=== PATIENT | male | born 1935 | race Caucasian/White ===

== ENCOUNTER 2019-01-02 07:27 | Inpatient (IN) | payer MEDICARE, SELFPAY ==
[2019-01-02] VITALS (15 sets, daily range): BP systolic 132–161; BP diastolic 54–84; PULSE 48–62; RESP 16–20; TEMP 36.3–36.8; O2SAT 93–97; BMI 26.5; BMI 26.6; BMI 27.1
--- NOTE | 2019-01-02 07:32 | RAD_ITS ---
STUDY: X-RAY CHEST REASON FOR EXAM: Male, 83 years old. Intermittent chest pain. Lightheadedness. TECHNIQUE: AP and lateral views of the chest. COMPARISON: None. FINDINGS: EKG electrodes are seen. Right upper lobe consolidation. There is no demonstrated pleural abnormality. Sternal cerclage wires and vascular clips are present from a prior sternotomy and coronary artery bypass graft procedure (CABG). Mild cardiomegaly. Normal mediastinum and terry. Normal visualized pulmonary arteries. There is atherosclerotic calcification of the aortic arch with tortuosity. There are diffuse degenerative changes of the visualized thoracic spine. Normal visualized ribs, clavicles, and shoulders. There is no demonstrated abnormality of the visualized soft tissue structures of the upper abdomen. RAD/Chest PA and Lateral IMPRESSION: Right upper lobe consolidation. Electronically Signed: Tyrel Johnson, at 9:11 EDT , Service support ,
--- NOTE | 2019-01-02 07:32 | EKG12_ITS ---
Test Reason : CP Blood Pressure : / mmHG Vent. Rate : 060 BPM Atrial Rate : 060 BPM P-R Int : 166 ms QRS Dur : 080 ms QT Int : 456 ms P-R-T Axes : 000 014 046 degrees QTc Int : 456 ms Normal sinus rhythm Nonspecific ST and T wave abnormality Abnormal ECG Confirmed by YUDELKA LOBO ([id number]), sound editor JAMES SMALLS ([id number]) on 01/05/2019 4:45:53 PM Referred By: HENRIETTA Confirmed By:YUDELKA LOBO
--- NOTE | 2019-01-02 08:02 | ED.DCSUM_ITS ---
History of Present Illness Chief Complaint: Shortness of Breath Informant: Family Onset: Days Context: Gradual Onset Timing: Intermittent Current Severity: Mild Maximum Severity: Mild Narrative: 83-year-old male presents from home where he lives with his at a catered living center. He was just hospitalized in [place] for pneumonia and discharged back to home 3 days ago. He required oxygen in the hospital but not upon discharge. His has been checking his oxygen saturation with a portable meter and it has varied from 85-95. He has been complaining of shortness of breath occasional lightheadedness. He was discharged home on Levaquin. He has a history of Parkinson's dementia and at baseline is fairly confused and hallucinates but he has been hallucinating somewhat more since he was diagnosed with pneumonia. Past Medical History - Allergies and Home Meds Allergies/Adverse Reactions: Allergies escitalopram [From Lexapro] Allergy (Verified 01/02/19 07:58) Unknown gabapentin Allergy (Verified 01/02/19 07:58) Unknown lorazepam [From Ativan] Allergy (Verified 01/02/19 07:58) Unknown Past Medical History: - - Parkinson's dementia, no history of COPD, never on home oxygen Lives: Spouse/ Significant Other Smoking Status: Never smoker Review of Systems All systems negative except as indicated General: Denies: Fever Cardiovascular: Denies: Chest pain Respiratory: Reports: Dyspnea, Cough, Sputum, Dyspnea on exertion Gastrointestinal: Denies: Vomiting Genitourinary: Denies: Dysuria Musculoskeletal: Denies: Back pain, Extremity Pain Skin: Denies: Rash Neurological: Denies: Weakness Psych: Denies: Depression, Anxiety Endocrine: Denies: Polyuria Hematologic: Denies: Easy bruising Allergy: Denies: Uticaria, Swelling of the mouth Physical Exam Vital Signs/Narrative: Vital Signs Temp Pulse Resp BP Pulse Ox 01/02/19 07:52 53 L 19 H 161/72 H 96 01/02/19 07:27 97.5 F L 60 18 132/65 H 96 Inital Vital Signs reviewed: Yes General: Well nourished, Well developed, No Acute Distress Head: Normocephalic, Atraumatic Eyes: Perrl, EOMI ENT: Moist mucous membranes Neck: Supple, Nontender Cardiovascular: Regular rate, Regular rhythm, No murmurs, Normal S1, Normal S2 Respiratory: No distress, CTA bilaterally Abdomen: Soft, Nontender, Nondistended Back: Normal Inspection Extremities: Nontender, No edema Skin: Normal color, No rash Neurological: Alert, - - no focal or lateralizing findings, answering questions appropriately Psychological: Normal affect, - - baseline per family Diagnostic/Tx/Re-eval - Rhythm Strip Rhythm Strip: Sinus Rhythm Ectopy: None - EKG sinus, 60, no acute ischemic changes Interpretation: Sinus Rhythm Prior: No Prior - Medical Decision Making Chest x-ray revealed a fairly sizable right middle/upper lobe pneumonia. White blood cell count was nearly 27,000 the lactic acid is normal. Vital signs are all fairly unremarkable except he is requiring 2 L of oxygen. He is not in acute distress. Urinalysis unremarkable. Given his oxygen requirement, pneumonia, leukocytosis, and recent hospitalization, I do feel he meets criteria for full admission. He just took his dose of Levaquin just prior to arrival so I did not administer antibiotics in the emergency department I discussed the case with the hospitalist at the bedside who has ordered antibiotics, intravenous Zosyn, which will be administered as soon as cleared from pharmacy. ED Disposition - Plan for ED Patient: Disposition: Acute Care [facility] Diagnosis: Healthcare-associated pneumonia
[2019-01-02 08:16] LABS: Absolute Lymphocyte Count 20.42 X10^3/ul (0.83-4.51); Absolute Neutrophil Count 4.5 X10^3/uL (2.0-7.7); Basophil# 0.05 X10^3/uL; Basophil% 0.2 % (0-1); Eosinophil# 0.29 X10^3/uL; Eosinophils% 1.1 % (0-5); Hematocrit 31.4 % (40-54); Lymphocyte # 20.42 X10^3/ul (4.0); Lymphocyte % 78.4 % (19-41); Mean Corp Hgb Conc 31.8 g/gl (32-36); Mean Corpuscular Hgb 27.9 pg (27.0-32.0); Mean Corpuscular Volume 87.7 fL (80-94); Mean Platelet Vol. 9.6 fl (6.2-12.0); Monocyte# 0.69 X10^3/uL; Monocyte% 2.6 % (0-10); Neutrophil % 17.3 % (47-70); Platelet Count 275 K/mm3 (150-450); RBC Distribution Width CV 16.3 % (11.6-14.6); RBC Distribution Width SD 50.5 fl (35.1-43.9); Red Blood Count 3.58 M/mm3 (4.6-6.2); White Blood Count 26.1 K/mm3 (4.4-11.0)
[2019-01-02 08:18] LABS: Differential Indicated SCAN CRITERIA MET; POSITIVE COUNT NO; POSITIVE DIFFERENTIAL YES; POSITIVE MORPHOLOGY YES
[2019-01-02 08:23] LABS: Bacteria 0 SEEN /hpf (None Seen); Mucous, Urine 0 SEEN /hpf (<or=2+); White Blood Cells 0 SEEN /hpf (0-5)
[2019-01-02 08:24] LABS: Anion Gap 6 (5-15); BUN 28 mg/dL (7-18); BUN/Creat Ratio 15.7 RATIO (10-20); Calcium,Total 8.3 mg/dL (8.5-10.1); Chloride 109 mmol/L (98-107); Creatinine, Serum 1.78 mg/dL (0.70-1.30); EST Glomerular Filtration Rate 39 mL/min (>60); Est Glom Filt Rate - Afr Amer 47 mL/min (>60); Estimated Creatinine Clearance 32.55 ml/min; Glucose 83 mg/dL (74-106); Potassium 4.6 mmol/L (3.5-5.1); Sodium Level 143 mmol/L (136-145)
[2019-01-02 08:24] LABS: Color, Urine Yellow (Yellow); Glucose, Dipstick Normal (Normal); Ketone-Dipstick Negative (Negative); Leukocyte Esterase-Dipstick Negative /ul (Negative); Nitrite-Dipstick Negative (Negative); Occult Blood-Urine 25 /ul (Negative); Protein-Dipstick 30 mg/dl (Negative); Urine Bilirubin Dipstick Negative (Negative); Urine Clarity Sl. Cloudy (Clear); Urine Urobilinogen Normal (Normal)
[2019-01-02 08:30] LABS: Red Blood Cells-Urine 0-5 SEEN /hpf (0-5); Squamous Epithelial Cells - UA 0-5 SEEN /hpf (0-5)
[2019-01-02 10:56] LABS: Lactic Acid 0.9 mmol/L (0.4-2.0)
[2019-01-02 11:58] LABS: Pathologist Review Reviewed
[2019-01-02] MEDS: Albuterol 2.5 MG/3 ML VIAL.NEB. INHALATION ×2 (13:07→18:36)
[2019-01-02] MEDS: Carbidopa/Levodopa 25/100 Tablet PO ×2 (14:17→22:57)
--- NOTE | 2019-01-02 17:39 | PCM.HP.STD ---
Problem List (1) Shortness of breath Status: Acute (2) Low pulse ox Status: Acute History of Present Illness Date of Admission: 01/02/19 Chief Complaint: Low pulse ox at home, shortness of breath The patient is a 83 year old M was seen in the emergency room at [facility] after being brought in by his due to a low pulse oximetry reading at home and complaints of intermittent shortness of breath. Patient had just been released from a community hospital after being treated for community-acquired pneumonia. Patient was in the hospital from 12/28/2018 through 12/30/2018. Patient's stated that he was on oxygen during his hospitalization but did not go home on oxygen. Patient has confusion due to Parkinson's dementia, states that he has been more confused than usual over the past couple of days. Review of systems was unobtainable from the patient, patient did answer simple questions appropriately however. Work-up in the emergency room showed an elevated white blood cell count, patient's chest x-ray showed a right upper lobe infiltrate, patient's creatinine was elevated at 1.78, BUN was 28, and lactic acid was unremarkable. Patient was afebrile. Patient's pulse ox on 2 L was 96%. Patient will be admitted for healthcare acquired pneumonia, he will be treated with IV Zosyn and receive aerosol treatments. Chest x-ray will be repeated tomorrow, labs will be monitored. Past Medical History Allergies escitalopram [From Lexapro] Allergy (Verified 01/02/19 07:58) Unknown gabapentin Allergy (Verified 01/02/19 07:58) Unknown lorazepam [From Ativan] Allergy (Verified 01/02/19 07:58) Unknown Home Medications: Ambulatory Orders Medication Instructions Recorded Aspirin E.C. [Ecotrin] 81 mg PO DAILY@0800 01/02/19 Carbidopa/Levodopa [Carbidopa-Levo 1 each PO TID 01/02/19 25-100 mg Odt] Cefdinir 300 mg PO BID 01/02/19 CycloSPORINE Ophthalmic [Restasis 1 drop OPHTHALMIC DAILY 01/02/19 Ophthalmic] Erythromycin Base [Erythromycin] 1 gm TOPICAL DAILY 01/02/19 L.acidoph,Paracasei, B.lactis 1 each PO DAILY 01/02/19 [Probiotic] Levofloxacin 500 mg PO DAILY 01/02/19 Levothyroxine [Synthroid] 112 mcg PO DAILY 01/02/19 Sertraline HCl 100 mg PO DAILY 01/02/19 Simvastatin 20 mg PO DAILY 01/02/19 Surgical History: appendectomy, cataract, cholecystectomy, tonsillectomy Psychiatric History: - - 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 Lives: Spouse/ Significant Other Smoking Status: Never smoker Tobacco Use: Non-smoker Alcohol: None Drugs: None - *Family History Maternal History Items: No pertinent history Paternal History Items: No pertinent history Review of Systems Comment: Review of systems was unobtainable from the patient due to confusion, patient answers some questions appropriately however, medical information was obtained from the patient's VTE Information - Inpt Only VTE Present on Admission: No VTE Mechan Device Prophylaxis: None VTE Pharm Prophylaxis ordered?: Yes Patient Problems: Active and Suspected Problems Healthcare-associated pneumonia (Acute) Shortness of breath (Acute) Low pulse ox (Acute) - Physical Exam General: Alert, Cooperative, Well developed, Confused - Patient has mild confusion, he answers some questions appropriately HEENT: Atraumatic, PERRLA, EOMI, Normocephalic Oral: Moist Mucosa Neck: Supple, No JVD, Negative Carotid Bruits, No Nuchal Rigidity, Trachea Midline, Thyroid Normal Size and Texture Lungs: Clear to auscultation, Normal air movement, No rhonchi, No wheeze, No rales Cardiovascular: Regular rate, Regular Rhythm, Normal S1, Normal S2, No murmurs, No Ectopic Activity, PMI Normal, No rub noted, No Gallop Abdomen: Bowel Sounds Present, Soft, Non Tender, Non-Distended, No hernias noted Extremities: No clubbing, No cyanosis, No edema, Capillary Refill Less than 3 Seconds Skin: No rashes, No breakdown Musculoskeletal: No Tenderness to Palpation of Joints or Extremities Neurological: Cranial nerves II-XII grossly intact, Neuro grossly intact, Sensory exam intact to light touch and pain, Coordination normal Psych/Mental Status: Normal Affect, Appropriate, Alert and oriented to time, place, person, mood and affect Vital Signs Temp Pulse Resp BP Pulse Ox 98.3 F 56 L 17 137/81 H 96 01/02/19 15:26 01/02/19 15:26 01/02/19 15:26 01/02/19 15:26 01/02/19 15:26 Oxygen Flow Rate (L/min) 2 Oxygen Delivery Method Nasal Cannula Weight: 78.744 kg Body Mass Index (BMI) 27.1 Intake and Output for Last 24 Hours 12/31/18 01/01/19 01/02/19 23:59 23:59 23:59 Intake Total 0 / 0 Output Total 0 / 0 Balance 0 / 0 Microbiology Past 72 Hours 01/02/19 07:55 Influenza Types A,B Direct FA (ANGELITA) - Final Mucosa - Nasopharyngeal Laboratory Tests Past 24 Hrs 01/02/19 01/02/19 01/02/19 07:45 07:45 08:10 WBC 26.1 H RBC 3.58 L Hgb 10.0 L Hct 31.4 L MCV 87.7 MCH 27.9 MCHC 31.8 L RDW 16.3 H RDW Differential 50.5 H Plt Count 275 MPV 9.6 Immature Gran % (Auto) 0.400 Neut % (Auto) 17.3 L Lymph % (Auto) 78.4 H Dade % (Auto) 2.6 Eos % (Auto) 1.1 Baso % (Auto) 0.2 Absolute Neuts (auto) 4.5 Absolute Lymphs (auto) 20.42 H Total Counted Not Reportable Diff Path Review Reviewed Sodium 143 Potassium 4.6 Chloride 109 H Carbon Dioxide 28.0 Anion Gap 6 BUN 28 H Creatinine 1.78 H Estim Creat Clear Calc 32.55 Est GFR (MDRD) Af Amer 47 L Est GFR (MDRD) Non-Af 39 L BUN/Creatinine Ratio 15.7 Glucose 83 Lactic Acid Calcium 8.3 L Troponin I 0.020 Urine Color Yellow Urine Clarity Sl. Cloudy Urine pH 5.0 Ur Specific [place] 1.020 Urine Protein 30 H Urine Glucose (UA) Normal Urine Ketones Negative Urine Occult Blood 25 H Urine Nitrite Negative Urine Bilirubin Negative Urine Urobilinogen Normal Ur Leukocyte Esterase Negative Urine RBC 0-5 SEEN Urine WBC 0 SEEN Ur Squamous Epith Cells 0-5 SEEN Urine Bacteria 0 SEEN Urine Mucus 0 SEEN 01/02/19 10:15 WBC RBC Hgb Hct MCV MCH MCHC RDW RDW Differential Plt Count MPV Immature Gran % (Auto) Neut % (Auto) Lymph % (Auto) Dade % (Auto) Eos % (Auto) Baso % (Auto) Absolute Neuts (auto) Absolute Lymphs (auto) Total Counted Diff Path Review Sodium Potassium Chloride Carbon Dioxide Anion Gap BUN Creatinine Estim Creat Clear Calc Est GFR (MDRD) Af Amer Est GFR (MDRD) Non-Af BUN/Creatinine Ratio Glucose Lactic Acid 0.9 Calcium Troponin I Urine Color Urine Clarity Urine pH Ur Specific [place] Urine Protein Urine Glucose (UA) Urine Ketones Urine Occult Blood Urine Nitrite Urine Bilirubin Urine Urobilinogen Ur Leukocyte Esterase Urine RBC Urine WBC Ur Squamous Epith Cells Urine Bacteria Urine Mucus Assessment/Plan All Active Problems Healthcare-associated pneumonia (Acute) Shortness of breath (Acute) Low pulse ox (Acute) #1 community-acquired pneumonia with failed outpatient treatment versus healthcare acquired pneumonia-patient will be admitted, he will be treated with IV Zosyn, he will receive aerosol treatments, repeat labs and chest x-ray will be obtained. 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 Patient appears to have chronic kidney disease. BMP will be repeated tomorrow #6 hyperlipidemia #7 hypothyroidism Code Visit Inpatient E&M: 29099 Init Hosp L3
[2019-01-02] MEDS: Atorvastatin Calcium 10 MG Tablet PO (22:57)
[2019-01-03] VITALS (7 sets, daily range): BP systolic 119–167; BP diastolic 48–65; PULSE 48–70; RESP 16–19; TEMP 36.6–36.8; O2SAT 93–96
--- NOTE | 2019-01-03 05:55 | RAD_ITS ---
STUDY: X-RAY CHEST REASON FOR EXAM: Male, 83 years old. Shortness of breath TECHNIQUE: PA and lateral views of the chest. COMPARISON: January 02, 2019 chest x-ray FINDINGS: There is a persistent focal patchy infiltrate in the right upper lobe. There is no demonstrated pleural abnormality. Sternal cerclage wires are present from a prior sternotomy. Normal mediastinum and terry. Normal visualized pulmonary arteries. Normal visualized aortic arch and descending thoracic aorta. There are diffuse degenerative changes of the visualized thoracic spine. Normal visualized ribs, clavicles, and shoulders. There is no demonstrated abnormality of the visualized soft tissue structures of the upper abdomen. RAD/Chest PA and Lateral IMPRESSION: Persistent right upper lobe pneumonia. Status post sternotomy. Electronically Signed: Cheryl Hwang MD at 15:05 EDT Tel , Service support ,
[2019-01-03] MEDS: Levothyroxine 112 MCG Tablet PO (05:56)
[2019-01-03] MEDS: Carbidopa/Levodopa 25/100 Tablet PO (05:57)
[2019-01-03 06:27] LABS: Absolute Lymphocyte Count 18.18 X10^3/ul (0.83-4.51); Absolute Neutrophil Count 5.2 X10^3/uL (2.0-7.7); Basophil# 0.06 X10^3/uL; Basophil% 0.3 % (0-1); Eosinophil# 0.18 X10^3/uL; Eosinophils% 0.8 % (0-5); Hematocrit 30.8 % (40-54); Hemoglobin 10.1 g/dl (13.0-16.5); Lymphocyte # 18.18 X10^3/ul (4.0); Lymphocyte % 75.9 % (19-41); Mean Corp Hgb Conc 32.8 g/gl (32-36); Mean Corpuscular Hgb 28.4 pg (27.0-32.0); Mean Corpuscular Volume 86.5 fL (80-94); Mean Platelet Vol. 8.6 fl (6.2-12.0); Monocyte# 0.24 X10^3/uL; Neutrophil # 5.22 X10^3/uL (2.7-7.7); Neutrophil % 21.7 % (47-70); Platelet Count 261 K/mm3 (150-450); RBC Distribution Width CV 15.8 % (11.6-14.6); RBC Distribution Width SD 50.2 fl (35.1-43.9); Red Blood Count 3.56 M/mm3 (4.6-6.2)
[2019-01-03 06:28] LABS: POSITIVE COUNT NO; POSITIVE DIFFERENTIAL YES
[2019-01-03 06:29] LABS: Differential Indicated SCAN CRITERIA MET; POSITIVE MORPHOLOGY YES
[2019-01-03] MEDS: Albuterol 2.5 MG/3 ML VIAL.NEB. INHALATION (06:35)
[2019-01-03 06:40] LABS: Anion Gap 7 (5-15); BUN 19 mg/dL (7-18); BUN/Creat Ratio 11.8 RATIO (10-20); Calcium,Total 8.4 mg/dL (8.5-10.1); Chloride 109 mmol/L (98-107); Creatinine, Serum 1.61 mg/dL (0.70-1.30); EST Glomerular Filtration Rate 44 mL/min (>60); Est Glom Filt Rate - Afr Amer 53 mL/min (>60); Estimated Creatinine Clearance 33.64 ml/min; Glucose 89 mg/dL (74-106); Potassium 3.7 mmol/L (3.5-5.1); Sodium Level 143 mmol/L (136-145)
[2019-01-03] MEDS: Enoxaparin 40 MG/0.4 ML Syringe SC (08:56)
--- NOTE | 2019-01-03 09:15 | NURSING ---
pt is irritable at this time. Confused on time of day. Insisting that no one has been in the room and he hasn't been fed. breakfast in room but pt refused to eat. Asked patient if he would like something else for breakfast but refused. Asked him if he wanted a family member called to visit, but he said no.
--- NOTE | 2019-01-03 11:05 | NURSING ---
Student nurse charting reviewed.
--- NOTE | 2019-01-03 11:25 | DCINST_ITS ---
- Discharge Diagnoses Current Active Problems: Current Active and Chronic Problems Healthcare-associated pneumonia (Acute) Shortness of breath (Acute) Low pulse ox (Acute) You will use the following diet at home:: No restrictions Your food should be the consistency of: Regular Your liquids should be the consistency of: Regular/Thin Discharge Activity: Return to Normal Activity Weight Bearing Status: Full weight bearing Allergies/Adverse Reactions: Allergies escitalopram [From Lexapro] Allergy (Verified 01/02/19 07:58) Unknown gabapentin Allergy (Verified 01/02/19 07:58) Unknown lorazepam [From Ativan] Allergy (Verified 01/02/19 07:58) Unknown Medications to take at Discharge Aspirin E.C. [Ecotrin] 81 mg PO DAILY@0800 01/02/19 Carbidopa/Levodopa [Carbidopa-Levo 25-100 mg Odt] 1 each PO TID 01/02/19 CycloSPORINE Ophthalmic [Restasis Ophthalmic] 1 drop OPHTHALMIC DAILY 01/02/19 Erythromycin Base [Erythromycin] 1 gm TOPICAL DAILY 01/02/19 L.acidoph,Paracasei, B.lactis [Probiotic] 1 each PO DAILY 01/02/19 Levothyroxine [Synthroid] 112 mcg PO DAILY 01/02/19 Sertraline HCl 100 mg PO DAILY 01/02/19 Simvastatin 20 mg PO DAILY 01/02/19 Levofloxacin 500 mg PO DAILY #0 01/03/19 Primary Care Physician: Kaci Ramirez DO [STAFF PHYSICIAN] - Please follow up with your Primary Care Physician in: in 7 days Test Results: Test results from this visit will be discussed in further detail at your follow- up appointment, if applicable.
--- NOTE | 2019-01-03 12:00 | CASEMGMT ---
Social Work Assessment Referral Date: 01/03/19 Date of Assessment: 01/03/19 Informant: NURSING Reason for Consult: D/C PLANNING Information obtained from: PATIENT AND PATIENT'S . Living Arrangements: PATIENT AND LIVE IN [place] IN AN INDEPENDENT LIVING APARTMENT. DME: WALKER Employment/Financial: RETIRED. PATIENT AND VOICE NO FINANCIAL CONCERNS. Supports: PATIENT HAS GOOD SUPPORT FROM . STATES PATIENT WILL BE GETTING OUTPATIENT THERAPY FROM [facility]. Interventions: SOCIAL SERVICE ASSESSMENT Assessment: PATIENT IS AN 83 Y/O MALE WHO RESIDES HOME WITH IN AN INDEPENDENT LIVING APARTMENT. PATIENT USES A WALKER FOR ASSISTANCE WITH AMBULATION NEEDED. REPORTS PLAN IS FOR HOME BEFORE AND DENIES ANY NEEDS AT THIS TIME. PLAN: HOME
[2019-01-03] MEDS: levoFLOXacin 500 MG Tablet PO (12:41)
--- NOTE | 2019-01-03 13:30 | CASEMGMT ---
Social Work Assessment Referral Date: Date of Assessment: Informant: Reason for Consult: Information obtained from: Living Arrangements: DME: Education: Employment/Financial: Supports: Social/Family Stressors: Mental Health History: Diagnoses: Medications: Physicians/Practitioners: Last Appointment (if applicable): Substance Abuse History: Substance(s) of choice: Last use: Hx of treatment: Where? When? Interventions: Assessment: PLAN:
--- NOTE | 2019-01-04 08:34 | DS.PCM_ITS ---
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 Patient had been hospitalized recently at [facility] for right upper lobe pneumonia and had been discharged 48 hours prior. Workup in the emergency room included labs which showed an elevated white blood cell count, patient's chest x-ray showed a right upper lobe infiltrate, patient's creatinine was elevated. Patient's pulse ox on 2 L was 96%, pulse ox subsequently on room air was 94%. Patient was admitted to PCU for community-acquired pneumonia with outpatient failure, he was placed on Zosyn, and he was given aerosol treatments. Chest x-ray was repeated the following day and it showed improvement in the infiltrate, patient's white blood cell count declined slightly. Patient was not felt to be septic. On 01/03/19, patient was seen and examined: On examination he appeared in good health and spirits. Vital signs as documented. Skin warm and dry and without overt rashes. Neck without JVD. Lungs clear. Heart exam notable for regular rhythm, normal sounds and absence of murmurs, rubs or gallops. Abdomen unremarkable and without evidence of organomegaly, masses, or abdominal aortic enlargement. Extremities nonedematous. Neuro: Cranial nerves II through XII are grossly intact, no focal motor deficits were noted, sensation to light touch and pinprick intact. Psych: Patient is alert , he does not appear anxious or depressed On 01/03/19, patient was seen and examined and felt to be in stable condition for discharge home - Physical Exam Vital Signs Temp Pulse Resp BP Pulse Ox 98.3 F 70 18 119/48 L 96 01/03/19 12:51 01/03/19 12:51 01/03/19 12:51 01/03/19 12:51 01/03/19 12:51 Oxygen Flow Rate (L/min) 94 Oxygen Delivery Method Room Air Weight: 78.744 kg Body Mass Index (BMI) 27.1 Intake and Output for Last 24 Hours 01/02/19 01/03/19 01/04/19 23:59 23:59 23:59 Intake Total 637 / 637 245 / 245 Output Total 750 / 750 750 / 750 Balance -113 / -113 -505 / -505 Microbiology Past 72 Hours 01/02/19 09:15 Blood Culture - Preliminary Blood Culture (Wb) #2 - Left Wrist No growth in 48 hours. 01/02/19 07:50 Blood Culture - Preliminary Blood Culture (Wb) #2 - Anticubital Right No growth in 48 hours. 01/02/19 07:55 Influenza Types A,B Direct FA (ANGELITA) - Final Mucosa - Nasopharyngeal Discharge Activity: Return to Normal Activity Weight Bearing Status: Full weight bearing Home Medications: Medications to take at Discharge Aspirin E.C. [Ecotrin] 81 mg PO DAILY@0800 01/02/19 Carbidopa/Levodopa [Carbidopa-Levo 25-100 mg Odt] 1 each PO TID 01/02/19 CycloSPORINE Ophthalmic [Restasis Ophthalmic] 1 drop OPHTHALMIC DAILY 01/02/19 Erythromycin Base [Erythromycin] 1 gm TOPICAL DAILY 01/02/19 L.acidoph,Paracasei, B.lactis [Probiotic] 1 each PO DAILY 01/02/19 Levothyroxine [Synthroid] 112 mcg PO DAILY 01/02/19 Sertraline HCl 100 mg PO DAILY 01/02/19 Simvastatin 20 mg PO DAILY 01/02/19 Levofloxacin 500 mg PO DAILY #0 01/03/19 Primary Care Physician: Kaci Ramirez DO [STAFF PHYSICIAN] - Please follow up with your Primary Care Physician in: in 7 days Please Follow Up With: Kaci Ramirez DO Disposition: Home Minutes spent on discharge:: 31 Patient Condition:: Stable Medical Necessity - Tobacco Use Smoking Status: Never smoker Tobacco Use: Non-smoker Meaningful Use Info Meaningful Use Diagnoses (Choose all that apply): None applicable Code Visit Inpatient E&M: 17825 Disch Hosp
== END 2019-01-03 13:10 | disposition home or self-care (01) | DRG 195 ==
LOC: ED 10:35 → PCU 11:11
PROVIDERS: Admitting Provider Internal Medicine; Emergency Provider Emergency Medicine; Family Provider Family Medicine; PCP Family Medicine; Visit Provider Internal Medicine
DX: J15.9 Unspecified bacterial pneumonia (principal); G20 Parkinson's disease; F02.80 Dementia in other diseases classified elsewhere, unspecified severity, without behavioral disturbance, psychotic disturbance, mood disturbance, and anxiety; E78.5 Hyperlipidemia, unspecified; E03.9 Hypothyroidism, unspecified; R06.89 Other abnormalities of breathing; I12.9 Hypertensive chronic kidney disease with stage 1 through stage 4 chronic kidney disease, or unspecified chronic kidney disease; N18.3 Chronic kidney disease, stage 3 (moderate)
CPT/HCPCS: 36415; 71046; 80048; 81001; 83605; 84484; 85025; 87040; 87804; 93005; 94640; 97116; 97161; 97166; 99251; 99284; A4216; G0463